=== PATIENT | female | born 2005 | race Caucasian/White ===

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

== ENCOUNTER 2024-05-30 13:49 | Emergency (ER) | payer SELFPAY ==
[~2024-05-30] VITALS: Ht 160 cm; Wt 54.1 kg
[2024-05-30 14:16] VITALS: BP 125/83; PULSE 70; RESP 17; TEMP 98.3; O2SAT 99
[2024-05-30 16:00] LABS: APPEARANCE,URINE CLEAR (CLEAR); BILIRUBIN,URINE NEGATIVE (NEGATIVE); BLOOD, URINE NEGATIVE (NEGATIVE); COLOR,URINE YELLOW (YELLOW); LEUKOCYTE ESTERASE ,URINE NEGATIVE (NEGATIVE); NITRITE, URINE NEGATIVE (NEGATIVE); PROTEIN,URINE NEGATIVE (NEGATIVE); UGLUCOSE NEGATIVE (NEGATIVE); UROBILINOGEN,URINE 0.2 EU/dL (0.2 - 1)
[2024-05-30] MEDS ORDERED: ONDA-188 SL (17:47)
[2024-05-30] MEDS ORDERED: SUD30 PO (17:47)
[2024-05-30] MEDS ORDERED: IMO2 PO (17:47)
[2024-05-30] MEDS ORDERED: PROM118S5 PO (17:47)
== END 2024-05-30 17:56 | disposition home or self-care (01) ==
LOC: MED 13:49
DX: B34.9 Viral infection, unspecified (principal); R03.0 Elevated blood-pressure reading, without diagnosis of hypertension; Z79.899 Other long term (current) drug therapy
CPT/HCPCS: 71045; 81003; 81025; 87081; 99284